=== PATIENT | female | born 1975 | race African-American/Black ===

== ENCOUNTER 2020-05-28 14:57 | Day surgery (SDC) | payer OTHER ==
[~2020-05-28 14:57] MED LIST: GLYCOPYRROLATE 1 MG/5 ML VIAL IVP ONE; LACTATED RINGERS 1,000 ML IV ONE; LIDOCAINE-MPF 2% 5 ML VIAL IM ONE; MIDAZOLAM 2 MG/2 ML VIAL IVP ONE; ONDANSETRON 4 MG/2 ML VIAL IVP ONE; PHENYLEPHRINE 10 MG/ML VIAL IV ONE; PROPOFOL 200 MG/20 ML VIAL IVP ONE; ROCURONIUM 50 MG/5 ML VIAL IVP ONE; ePHEDrine 50 MG/ML VIAL IVP ONE; fentaNYL 250 MCG/5 ML VIAL IVP ONE
--- NOTE | 2020-05-28 15:13 | ED Physician Documentation ---
PD HPI ABD PAIN - Stated complaint Stated Complaint: ABD PX/NAUSEA - History obtained from History obtained from: Patient - History of Present Illness Timing - onset: Last night (about 1 am, with onset pain left lower abd that has spread to include whole lower abd and also to mid abdomen, with distension. Now mostly tender right lower.) Timing - duration: Hours (14) Timing - details: Abrupt onset, Still present Quality: Cramping, Aching, Fullness/distended, Pain Location: Periumbilical, RLQ, LLQ Radiation: Lower back. No: Chest Worsened by: Eating Associated symptoms: Nausea, Constipation (no BM for 3-4 days, tried Miralax for past 2 days and today a suppository. However often goes few days between BMs without similar symptoms in the past.). No: Fever, Vomiting Similar symptoms before: Has not had sx before Recently seen: Not recently seen Review of Systems Constitutional: denies: Fever, Chills, Myalgias Nose: denies: Rhinorrhea / runny nose, Congestion Throat: denies: Sore throat Respiratory: denies: Cough GI: reports: Abdominal Pain, Abdominal Swelling, Nausea, Constipation. denies: Vomiting, Diarrhea, Bloody / black stool : denies: Dysuria, Frequency, Vaginal bleeding Skin: denies: Rash, Lesions Neurologic: reports: Generalized weakness. denies: Near syncope Endocrine: denies: Weight loss Immunocompromised: denies: Immunocompromised PD PAST MEDICAL HISTORY - Past Medical History Cardiovascular: Hypertension, Atrial fibrillation (with prior ablation) Respiratory: None Neuro: None Endocrine/Autoimmune: None GI: Chronic constipation : None - Past Surgical History General: Appendectomy Cardiovascular: Other (ablation for fib) - Allergies Allergies/Adverse Reactions: Allergies Allergy/AdvReac Type Severity Reaction Status Date / Time aspirin Allergy Anaphylaxis Verified 05/28/20 17:43 - Living Situation Living Situation: reports: With spouse/s.o. Living Arrangement: reports: At home - Social History Does the pt smoke?: No Does the pt drink ETOH?: No Does the pt have substance abuse?: No - Family History Family history: denies: CAD, Aortic aneursym PD ED PE NORMAL - Vitals Vital signs reviewed: Yes - General General: Alert and oriented X 3, Well developed/nourished, Other (appears uncomfortable) - HEENT HEENT: Moist mucous membranes, Pharynx benign - Neck Neck: Supple, no meningeal sign, No adenopathy - Cardiac Cardiac: RRR, No murmur - Respiratory Respiratory: Clear bilaterally - Abdomen Abdomen: Soft, No organomegaly, Other (Abdomen feels moderately distended with hyperactive bowel sounds. Focally marked tenderness in the right lower quadrant to periumbilical/mid lower abd area. There is local guarding. Moderate percussion tenderness.) - Female Female : Deferred - Rectal Rectal: Deferred - Back Back: No CVA TTP - Derm Derm: Normal color, Warm and dry - Extremities Extremities: No edema, No calf tenderness / cord - Neuro Neuro: Alert and oriented X 3, No motor deficit, Normal speech Results - Vitals Vitals: Vital Signs - 24 hr 05/28/20 05/28/20 05/28/20 15:10 17:17 19:00 Temperature 36.8 C Heart Rate 68 60 63 Respiratory 18 20 20 Rate Blood Pressure 139/83 H 131/89 H 144/80 H O2 Saturation 100 97 100 05/28/20 21:00 Temperature Heart Rate 70 Respiratory 17 Rate Blood Pressure 149/91 H O2 Saturation 100 Oxygen O2 Source Room air - Labs Labs: Laboratory Tests 05/28/20 05/28/20 05/28/20 15:40 18:42 18:42 WBC 8.4 RBC 4.47 Hgb 12.4 Hct 40.6 MCV 90.8 MCH 27.7 MCHC 30.5 L RDW 12.6 Plt Count 219 MPV 9.1 Neut # (Auto) 4.9 Lymph # (Auto) 2.8 [place] # (Auto) 0.6 Eos # (Auto) 0.1 Baso # (Auto) 0.0 Absolute Nucleated RBC 0.00 Nucleated RBC % 0.0 Sodium 137 Potassium 3.5 Chloride 103 Carbon Dioxide 25 Anion Gap 9.0 BUN 7 Creatinine 0.7 Estimated GFR (MDRD) 110 Glucose 93 Calcium 8.7 Total Bilirubin 0.6 AST 15 ALT 14 Alkaline Phosphatase 78 Total Protein 6.9 Albumin 3.9 Globulin 3.0 Albumin/Globulin Ratio 1.3 Lipase 23 Urine Color YELLOW Urine Clarity CLEAR Urine pH 7.0 Ur Specific [place] 1.010 Urine Protein NEGATIVE Urine Glucose (UA) NEGATIVE Urine Ketones TRACE Urine Occult Blood SMALL H Urine Nitrite NEGATIVE Urine Bilirubin NEGATIVE Urine Urobilinogen 0.2 (NORMAL) Ur Leukocyte Esterase TRACE H Urine RBC 6-10 H Urine WBC 6-10 H Ur Squamous Epith Cells MANY Squamous H Urine Bacteria Few Ur Microscopic Review INDICATED Urine Culture Comments NOT INDICATED Urine HCG, Qual NEGATIVE PD MEDICAL DECISION MAKING - ED course Complexity details: considered differential (consider bowel obstruction, diverticulitis, UTI, kidney stone. Has prior appy so not that. Consider ovarian as well, but exam more seeming GI so will start with CT. ), d/w patient ED course: care to Dr. Garcia at change of shift. Pending CT at this time. Reasonable improvement in pain with IV meds. Departure - Departure Disposition: ED Transfer to [facility] Clinical Impression: Ovarian torsion Condition: Stable
[2020-05-28] MEDS ORDERED: KETOROLAC 15 MG/ML VIAL IVP STA (15:49)
[2020-05-28] MEDS ORDERED: HYDROmorphone 1 MG/ML CARPUJECT IVP STA (15:49)
[2020-05-28] MEDS ORDERED: ONDANSETRON 4 MG/2 ML VIAL IVP STA (15:49)
[2020-05-28] MEDS ORDERED: SODIUM CHLORIDE 0.9% 1,000 ML IV STA ×3 (15:49→20:31)
[2020-05-28 16:03] LABS: BILIRUBIN,URINE NEGATIVE (NEGATIVE); CLARITY,URINE CLEAR (CLEAR); GLUCOSE, URINE (UA) NEGATIVE (NEGATIVE); KETONES,URINE (UA) TRACE mg/dL (NEGATIVE); LEUKOCYTE ESTERASE, URINE TRACE (NEGATIVE); NITRITE,URINE NEGATIVE (NEGATIVE); OCCULT BLOOD,URINE SMALL (NEGATIVE); PROTEIN,URINE NEGATIVE (NEGATIVE); UROBILINOGEN,URINE 0.2 (NORMAL) E.U./dL (NORMAL)
[2020-05-28 16:08] LABS: HCG UR QUAL NEGATIVE
[2020-05-28 16:11] LABS: BACTERIA,URINE Few /HPF (None Seen); SQUAMOUS EPITHELIAL CELL,UR MANY Squamous (<= Few)
[2020-05-28] MEDS ORDERED: IOVERSOL 320 100 ML VIAL IVP ONE (17:29)
[2020-05-28 18:47] LABS: BASOPHILS % (AUTO) 0.2 %; EOSINOPHILS # (AUTO) 0.1 10^3/uL (0.0-0.7); EOSINOPHILS % (AUTO) 0.6 %; HGB - HEMOGLOBIN 12.4 g/dL (12.0-16.0); LYMPHOCYTES # (AUTO) 2.8 10^3/uL (1.5-3.5); LYMPHOCYTES % (AUTO) 33.6 %; MEAN CORPUSCULAR HEMOGLOBIN 27.7 pg (27.0-31.0); MEAN CORPUSCULAR HGB CONC 30.5 g/dL (32.0-36.0); MEAN CORPUSCULAR VOLUME 90.8 fL (81.0-99.0); MEAN PLATELET VOLUME 9.1 fL (7.9-10.8); MONOCYTES # (AUTO) 0.6 10^3/uL (0.0-1.0); MONOCYTES % (AUTO) 7.1 %; NEUTROPHILS # (AUTO) 4.9 10^3/uL (1.5-6.6); NEUTROPHILS % (AUTO) 58.1 %; PLT - PLATELET COUNT 219 10^3/uL (130-450); RED BLOOD COUNT 4.47 10^6/uL (4.20-5.40); RED CELL DISTRIBUTION WIDTH 12.6 % (12.0-15.0); WHITE BLOOD COUNT 8.4 x10^3/uL (4.8-10.8)
[2020-05-28 18:59] LABS: ALBUMIN 3.9 g/dL (3.2-5.5); ALBUMIN/GLOBULIN RATIO 1.3 (1.0-2.2); BILIRUBIN,TOTAL 0.6 mg/dL (0.2-1.0); CALCIUM 8.7 mg/dL (8.5-10.3); CREATININE 0.7 mg/dL (0.4-1.0); TOTAL PROTEIN 6.9 g/dL (6.7-8.2)
--- NOTE | 2020-05-28 20:14 | CT Report ---
PROCEDURE: Abdomen/Pelvis W INDICATIONS: Abdominal pain, acute, nonlocalized CONTRAST: IV CONTRAST: Optiray 320 ml: 100 PO CONTRAST: *NO PO CONTRAST TECHNIQUE: After the administration of nonionic contrast, 5 mm thick sections acquired from the diaphragms to th e symphysis. 5 mm thick coronal and sagittal reformats were acquired. For radiation dose reduction, the following was used: automated exposure control, adjustment of mA and/or kV according to patient size. COMPARISON: None. FINDINGS: Image quality: Excellent. ABDOMEN: Lung bases: Lung bases are clear. Heart size is normal. Solid organs: Liver and spleen are normal in size and enhancement. Gallbladder appears normal Bili jamin system is non dilated. Pancreas enhances normally. No adrenal nodules. Kidneys demonstrate nor mal size and enhancement, without hydronephrosis. Peritoneum and bowel: Bowel loops demonstrate normal wall thickness and caliber. No free fluid or a ir. Generalized moderate colonic obstipation. Nodes and vessels: No retroperitoneal or mesenteric adenopathy by size criteria. Aorta and inferior vena cava are normal in size. Miscellaneous: No ventral hernias. PELVIS: Genitourinary: Bladder wall thickness is normal. The right ovary, conventional positioning, measure s up to 2.9 x 2.3 cm in maximal axial dimension. The left ovary, located at the anterior border of th e broad ligament, is asymmetrically larger measuring up to 4.5 x 3.2 cm. Free fluid is present to a m ild degree both at the right cul-de-sac. The anterior aspect of the broad ligament bilaterally. Miscellaneous: No inguinal hernias or adenopathy. Bones: No suspicious bony lesions. No vertebral body compression fractures. IMPRESSION: Generalized colonic obstipation, gallbladder appears normal, no urinary tract stone is f ound. A potentially significant abnormality is noted when comparing the size of the left kidney to the righ t. As discussed above the left kidney is anterior, adjacent to the anterior border of the broad ligam ent, and is larger than that on the right. This appearance could conceivably represent a manifestatio n of left ovarian torsion. Please correlate clinically as to whether follow-up by targeted pelvic ult rasound is warranted. Reviewed by: Brayan Sams MD on 05/28/2020 8:13 PM PDT Approved by: Brayan Sams MD on 05/28/2020 8:13 PM PDT Station ID: [id number]
[2020-05-28] MEDS ORDERED: MORPHINE 2 MG/ML CARPUJECT IVP STA (20:31)
--- NOTE | 2020-05-28 20:31 | ED Physician Documentation ---
ED Addendum - Addendum Addendum: 05/28/20 20:30 CT concerning for ovarian torsion. Patient appears to be in significant pain at this time. Her pain started suddenly at approximately 1 AM while she was sleeping. Pelvic ultrasound is ordered. She is tender in the left pelvic area. I consulted Dr. Yee, [employer] at 2030. She will come evaluate the patient. Patient has been n.p.o. all day. 05/28/20 22:21 Ultrasound performed, appears to only have peripheral arterial and venous flow. Varices are adjacent to the left ovary. Concerning for torsion. Recontacted Dr. Yee who will come evaluate the patient. Patient signed out to Dr. Brown. This document was made in part using voice recognition software. While efforts are made to proofread this document, sound alike and grammatical errors may occur. Departure - Departure Disposition: ED Transfer to [facility] Clinical Impression: Ovarian torsion Condition: Stable
--- NOTE | 2020-05-28 23:17 | HISTORY & PHYSICAL EXAMINATION ---
HPI - Admitted From Admitted from: ED - History Obtained From History obtained from: Patient, Family Exam limitations: No limitations - History of Present Illness HPI Comment/Other: CC: abdominal pain HPI: was sleeping on her left side, suddenly woke with pain at 0200, couldn't get comfortable, then pain became worse over time and became generalized. Thought it was constipation, tends to have BM q3d, last BM was 4d ago, has been taking mirilax. Got a suppository which didn't yield a BM. Due to the severe paian she came to ED for eval. Radiates to low back. Sharp pain. Movement makes it worse. 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 Able to take ibuprofen without problems. No hx of asthma. FH: no anesthesia problems SH: no t/e/d. Stay at home mom. 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: Dilation and currettage, Other (Ovarian cystectomy, myomectomy laparoscopic) Cardiovascular: positive: Other (ablation for WPW) Social & Family Hx - Social History Does the pt smoke?: No Smoking Status: Never smoker Does the pt drink ETOH?: No Does the pt have substance abuse?: No Meds/Allgy - Allergies Allergies/Adverse Reactions: Allergies Allergy/AdvReac Type Severity Reaction Status Date / Time aspirin Allergy Anaphylaxis Verified 05/28/20 17:43 Review of Systems - Constitutional Constitutional: denies: Fatigue, Fever Exam - Vital Signs Reviewed Vital Signs: Yes Vital Signs: Vital Signs x48h Pulse Resp BP Pulse Ox 05/28/20 23:00 71 18 154/93 H 100 05/28/20 21:00 70 17 149/91 H 100 05/28/20 19:00 63 20 144/80 H 100 05/28/20 17:17 60 20 131/89 H 97 - Physical Exam General Appearance: positive: No acute distress Eyes Bilateral: positive: EOMI Respiratory: positive: No respiratory distress, Breath sounds nml Cardiovascular: positive: Regular rate & rhythm, No gallop Abdomen: positive: Guarding, Rebound, Other (Mild distension, diffusely tender) Skin: positive: Color nml, Warm, Dry Neurologic/Psychiatric: positive: Mood/affect nml, Other (oriented) Results - Lab Results Fish Bones: 05/28/20 18:42 05/28/20 18:42 Other Lab Results: Lab Results x24hrs 05/28/20 05/28/20 05/28/20 Range/Units 18:42 18:42 15:40 WBC 8.4 (4.8-10.8) x10^3/uL RBC 4.47 (4.20-5.40) 10^6/uL Hgb 12.4 (12.0-16.0) g/dL Hct 40.6 (37.0-47.0) % MCV 90.8 (81.0-99.0) fL MCH 27.7 (27.0-31.0) pg MCHC 30.5 L (32.0-36.0) g/dL RDW 12.6 (12.0-15.0) % Plt Count 219 (130-450) 10^3/uL MPV 9.1 (7.9-10.8) fL Neut # (Auto) 4.9 (1.5-6.6) 10^3/uL Lymph # (Auto) 2.8 (1.5-3.5) 10^3/uL [place] # (Auto) 0.6 (0.0-1.0) 10^3/uL Eos # (Auto) 0.1 (0.0-0.7) 10^3/uL Baso # (Auto) 0.0 (0.0-0.1) 10^3/uL Absolute Nucleated RBC 0.00 x10^3/uL Nucleated RBC % 0.0 /100WBC Sodium 137 (135-145) mmol/L Potassium 3.5 (3.5-5.0) mmol/L Chloride 103 (101-111) mmol/L Carbon Dioxide 25 (21-32) mmol/L Anion Gap 9.0 (6-13) BUN 7 (6-20) mg/dL Creatinine 0.7 (0.4-1.0) mg/dL Estimated GFR (MDRD) 110 (>89) Glucose 93 (70-100) mg/dL Calcium 8.7 (8.5-10.3) mg/dL Total Bilirubin 0.6 (0.2-1.0) mg/dL AST 15 (10-42) IU/L ALT 14 (10-60) IU/L Alkaline Phosphatase 78 (42-121) IU/L Total Protein 6.9 (6.7-8.2) g/dL Albumin 3.9 (3.2-5.5) g/dL Globulin 3.0 (2.1-4.2) g/dL Albumin/Globulin Ratio 1.3 (1.0-2.2) Lipase 23 (22-51) U/L Urine Color YELLOW Urine Clarity CLEAR (CLEAR) Urine pH 7.0 (5.0-7.5) PH Ur Specific [place] 1.010 (1.002-1.030) Urine Protein NEGATIVE (NEGATIVE) mg/dL Urine Glucose (UA) NEGATIVE (NEGATIVE) mg/dL Urine Ketones TRACE (NEGATIVE) mg/dL Urine Occult Blood SMALL H (NEGATIVE) Urine Nitrite NEGATIVE (NEGATIVE) Urine Bilirubin NEGATIVE (NEGATIVE) Urine Urobilinogen 0.2 (NORMAL) (NORMAL) E.U./dL Ur Leukocyte Esterase TRACE H (NEGATIVE) Urine RBC 6-10 H (0-5) /HPF Urine WBC 6-10 H (0-5) /HPF Ur Squamous Epith Cells MANY Squamous H (<= Few) Urine Bacteria Few (None Seen) /HPF Ur Microscopic Review INDICATED Urine Culture Comments NOT INDICATED Urine HCG, Qual NEGATIVE - Diagnostic Imaging Results Diagnostic Imaging Results: positive: See rad report, Read contemporaneously Diagnostic Imaging Results Comments: US with a [id number] complex left ovarian cyst, edematous appearance, adjacent varicocity, and no central blood flow. Mild free fluid present. Impression/Plan - Problem List Problem List: 44yo with pain, exam, and ultrasound appearance c/w left ovarian torsion. WBC normal, CT normal. [id number] left ov cyst. Discussed etiology and that the only treatment options are no treatment vs. surgical untwisting and cystectomy. Patient prefers treatment. Discussed laparoscopy, how it is performed, and recovery. Pt has had 2 LSC in the past and is familiar with this surgery. Risks include bleeding, infection, trauma to local organs, anesthesia complications, and failure to cure pain. Offered incidental salpingectomy to reduce cancer risk--patient would like this done. All questions answered and consent signed. OR team on their way. Plan for extended recovery to see if this pain resolves.
[2020-05-28] MEDS ORDERED: HYDROcod/ACET 5/325 Prepack 4 PO STA (23:27)
[2020-05-28] MEDS ORDERED: METOPROLOL SUCCINATE 25 MG TABLET PO SCH (23:39)
[2020-05-28] MEDS: METOPROLOL SUCCINATE 25 MG TABLET PO SCH (23:42)
[2020-05-29] MEDS ORDERED: IOVERSOL 320 100 ML VIAL IVP ONE
--- NOTE | 2020-05-29 00:38 | ANESTHESIA ---
Pre-Anesthesia VS, & Labs - Diagnosis Ovarian cyst, possible torsion - Procedure ovarian cystectomy, possible L (vs. R) salpingo-oophorectomy Vital Signs: Temp Pulse Resp BP Pulse Ox 36.8 C 71 18 154/93 H 100 05/28/20 15:10 05/28/20 23:00 05/28/20 23:00 05/28/20 23:00 05/28/20 23:00 Height 5 ft 3 in Weight (kg) 68.039 kg Body Mass Index 26.5 - Is Patient ?: No - Lab Results Current Lab Results: Laboratory Tests 05/28/20 18:42: Sodium 137, Potassium 3.5, Chloride 103, Carbon Dioxide 25, Anion Gap 9.0, BUN 7, Creatinine 0.7, Estimated GFR (MDRD) 110, Glucose 93, Calcium 8.7, Total Bilirubin 0.6, AST 15, ALT 14, Alkaline Phosphatase 78, Total Protein 6.9, Albumin 3.9, Globulin 3.0, Albumin/Globulin Ratio 1.3, Lipase 23 05/28/20 18:42: WBC 8.4, RBC 4.47, Hgb 12.4, Hct 40.6, MCV 90.8, MCH 27.7, MCHC 30.5 L, RDW 12.6, Plt Count 219, MPV 9.1, Neut # (Auto) 4.9, Lymph # (Auto) 2.8, [place] # (Auto) 0.6, Eos # (Auto) 0.1, Baso # (Auto) 0.0, Absolute Nucleated RBC 0.00, Nucleated RBC % 0.0 Fish Bones: 05/28/20 18:42 05/28/20 18:42 Home Medications and Allergies Active Medications Sodium Chloride (Normal Saline 0.9%) 1,000 mls @ 150 mls/hr IV .[id number] STA Stop: 05/29/20 03:10 Last Admin: 05/28/20 20:40 Dose: 150 mls/hr Documented by: Metoprolol Succinate (Toprol Xl) 25 mg PO DAILY CHARLES Last Admin: 05/28/20 23:42 Dose: Not Given Documented by: Allergies/Adverse Reactions: Allergies Allergy/AdvReac Type Severity Reaction Status Date / Time aspirin Allergy Anaphylaxis Verified 05/28/20 17:43 Anes History & Medical History - Medical History Cardiovascular: reports: Hypertension, Other (WPW with normal rhythm since ablation in 1997) Pulmonary: reports: None Gastrointestinal: reports: Chronic constipation Urinary: reports: None Neuro: reports: None Endocrine/Autoimmune: reports: None Smoking Status: Never smoker - Surgical History General: Appendectomy Cardiothoracic: Other (ablation for WPW) Gynecologic: Dilation and currettage, Other (Ovarian cystectomy, myomectomy laparoscopic) Orthopedic: Other (Right thumb x3) Plan Anesthesia Type: General Consent for Procedure(s) Verified and Reviewed: Yes Code Status: Attempt Resuscitation ASA classification: 2-Mild systemic disease (2E) Is this case an emergency?: Yes
[2020-05-29] MEDS ORDERED: BUPIVACAINE 0.5% PF 30 ML VIAL ONE (00:47)
[2020-05-29] MEDS ORDERED: LIDOCAINE 1%-EPI 1:100000 20 ML MDV ONE (00:47)
[2020-05-29] MEDS ORDERED: BUPIVACAINE 0.5% PF 30 ML VIAL INFIL ONE (00:50)
[2020-05-29] MEDS ORDERED: LIDOCAINE 1%-EPI 1:100000 20 ML MDV SUBQ ONE (00:50)
[2020-05-29] MEDS ORDERED: MORPHINE 2 MG/ML CARPUJECT IVP PRN (00:57)
[2020-05-29] MEDS ORDERED: METOCLOPRAMIDE 10 MG/2 ML VIAL IVP PRN ×2 (00:57→05:07)
[2020-05-29] MEDS ORDERED: NALOXONE 0.4 MG/ML VIAL IVP PRN (00:57)
[2020-05-29] MEDS ORDERED: HYDROmorphone 0.5 MG/0.5 ML SYRINGE IVP PRN (00:57)
[2020-05-29] MEDS ORDERED: ePHEDrine 50 MG/ML VIAL IVP PRN (00:57)
[2020-05-29] MEDS ORDERED: ONDANSETRON 4 MG/2 ML VIAL IVP PRN (00:57)
[2020-05-29] MEDS ORDERED: fentaNYL 100 MCG/2 ML VIAL IVP PRN (00:57)
[2020-05-29] MEDS ORDERED: ATROPINE ABBOJECT 1 MG/10 ML SYRINGE IVP PRN (00:57)
[2020-05-29] MEDS ORDERED: LACTATED RINGERS 1,000 ML IV SCH (01:00)
[2020-05-29] MEDS ORDERED: diphenhydrAMINE 25 MG CAPSULE PO PRN (02:11)
[2020-05-29] MEDS ORDERED: oxyCODONE 5 MG TABLET PO PRN (02:11)
[2020-05-29] MEDS ORDERED: SODIUM CHLORIDE FLUSH 0.9% 10 ML SYRINGE IVP PRN (02:11)
[2020-05-29] MEDS ORDERED: SIMETHICONE CHEW 80 MG TABLET PO PRN (02:11)
--- NOTE | 2020-05-29 02:16 | OPERATIVE REPORT ---
Operative Report - General Procedure Date: 05/29/20 Pre-Op Diagnosis: Abd pain, left ov torsion, complex left ov cyst Procedure Performed: LSC bilateral salpingectomy and right ovarian cyst drainage Post Op Diagnosis: Hemorrhagic left ovarian cyst - Procedure Note Primary Surgeon: Joselito Anesthesia Technique: General LMA Pathology: bilateral tubes IV Fluids (mL): 550 Estimated Blood Loss (mL): 10 Urine Output (mL): 300 Findings: L ov cyst hemorrhagic with clot, mild volume of blood in pelvis, right paratubal cyst, left tube appeared edematous, no necrosis in pelvis, no adhesions Complications: none
[2020-05-29] MEDS ORDERED: ONDANSETRON 4 MG/2 ML VIAL ONE (02:37)
[2020-05-29] MEDS: HYDROmorphone 0.5 MG/0.5 ML SYRINGE ONE ×2 (02:40→02:46)
[2020-05-29] MEDS: ONDANSETRON ODT 4 MG TABLET TL PRN ×2 (04:59→09:00)
--- NOTE | 2020-05-29 05:09 | PROVIDER PROGRESS NOTE ---
Subjective - Subjective Subjective: Patient reports improved pain compared to when she was in the ER. Nauseated but good pain control. Objective - Vital Signs/Intake & Output Vital Signs: Vital Signs x48h Temp Pulse Resp BP Pulse Ox 05/29/20 05:00 79 16 122/75 99 05/29/20 04:30 79 16 120/77 96 05/29/20 04:00 73 15 123/78 98 05/29/20 03:45 78 16 127/77 97 05/29/20 03:30 98.1 F 72 16 127/68 97 05/29/20 03:15 98.1 F 74 16 122/82 H 95 05/29/20 02:55 97.5 F L 72 16 122/94 H 100 05/29/20 02:45 97.3 F L 74 16 146/80 H 100 05/29/20 02:40 97.5 F L 77 16 135/84 H 100 05/29/20 02:35 97.3 F L 80 20 139/94 H 100 05/29/20 02:30 97.3 F L 86 20 140/81 H 100 05/29/20 02:25 97.3 F L 76 20 134/80 H 100 05/29/20 02:20 97.7 F 72 16 129/78 100 05/29/20 02:15 97.5 F L 74 16 130/82 H 100 05/29/20 02:10 97.3 F L 80 16 130/82 H 100 05/29/20 02:07 98.1 F 82 12 132/82 H 100 05/28/20 23:51 67 18 134/90 H 98 05/28/20 23:00 71 18 154/93 H 100 Intake & Output: Intake & Output 05/26/20 05/27/20 05/28/20 05/29/20 23:59 23:59 23:59 23:59 Intake Total 2000 Balance 1999 - Lab Results Fish Bones: 05/28/20 18:42 05/28/20 18:42 Other Labs: Lab Results x24hrs 05/28/20 05/28/20 05/28/20 Range/Units 18:42 18:42 15:40 WBC 8.4 (4.8-10.8) x10^3/uL RBC 4.47 (4.20-5.40) 10^6/uL Hgb 12.4 (12.0-16.0) g/dL Hct 40.6 (37.0-47.0) % MCV 90.8 (81.0-99.0) fL MCH 27.7 (27.0-31.0) pg MCHC 30.5 L (32.0-36.0) g/dL RDW 12.6 (12.0-15.0) % Plt Count 219 (130-450) 10^3/uL MPV 9.1 (7.9-10.8) fL Neut # (Auto) 4.9 (1.5-6.6) 10^3/uL Lymph # (Auto) 2.8 (1.5-3.5) 10^3/uL [place] # (Auto) 0.6 (0.0-1.0) 10^3/uL Eos # (Auto) 0.1 (0.0-0.7) 10^3/uL Baso # (Auto) 0.0 (0.0-0.1) 10^3/uL Absolute Nucleated RBC 0.00 x10^3/uL Nucleated RBC % 0.0 /100WBC Sodium 137 (135-145) mmol/L Potassium 3.5 (3.5-5.0) mmol/L Chloride 103 (101-111) mmol/L Carbon Dioxide 25 (21-32) mmol/L Anion Gap 9.0 (6-13) BUN 7 (6-20) mg/dL Creatinine 0.7 (0.4-1.0) mg/dL Estimated GFR (MDRD) 110 (>89) Glucose 93 (70-100) mg/dL Calcium 8.7 (8.5-10.3) mg/dL Total Bilirubin 0.6 (0.2-1.0) mg/dL AST 15 (10-42) IU/L ALT 14 (10-60) IU/L Alkaline Phosphatase 78 (42-121) IU/L Total Protein 6.9 (6.7-8.2) g/dL Albumin 3.9 (3.2-5.5) g/dL Globulin 3.0 (2.1-4.2) g/dL Albumin/Globulin Ratio 1.3 (1.0-2.2) Lipase 23 (22-51) U/L Urine Color YELLOW Urine Clarity CLEAR (CLEAR) Urine pH 7.0 (5.0-7.5) PH Ur Specific [place] 1.010 (1.002-1.030) Urine Protein NEGATIVE (NEGATIVE) mg/dL Urine Glucose (UA) NEGATIVE (NEGATIVE) mg/dL Urine Ketones TRACE (NEGATIVE) mg/dL Urine Occult Blood SMALL H (NEGATIVE) Urine Nitrite NEGATIVE (NEGATIVE) Urine Bilirubin NEGATIVE (NEGATIVE) Urine Urobilinogen 0.2 (NORMAL) (NORMAL) E.U./dL Ur Leukocyte Esterase TRACE H (NEGATIVE) Urine RBC 6-10 H (0-5) /HPF Urine WBC 6-10 H (0-5) /HPF Ur Squamous Epith Cells MANY Squamous H (<= Few) Urine Bacteria Few (None Seen) /HPF Ur Microscopic Review INDICATED Urine Culture Comments NOT INDICATED Urine HCG, Qual NEGATIVE
[2020-05-29] MEDS ORDERED: SODIUM CHLORIDE FLUSH 0.9% 10 ML SYRINGE IVP SCH (09:00)
[2020-05-29] MEDS ORDERED: METOPROLOL SUCCINATE 25 MG TABLET PO SCH (09:00)
[2020-05-29] MEDS ORDERED: DOCUSATE SODIUM 100 MG CAPSULE PO SCH (09:00)
[2020-05-29] MEDS: METOPROLOL SUCCINATE 25 MG TABLET PO SCH (09:57)
--- NOTE | 2020-05-29 10:00 | Ultrasound Report ---
PROCEDURE: Pelvic w/Transvag+Doppler Comp INDICATIONS: pelvic pain, L TECHNIQUE: Real-time scanning was performed of the pelvic organs, with image documentation. Additional endovagi nal scanning was necessary due to incomplete visualization of the adnexal and endometrial structures by transabdominal scanning. COMPARISON: Correlation is made with the accompanying abdomen pelvis CT 05/28/20 FINDINGS: Transabdominal scanning: Limited scanning through the kidneys shows no hydronephrosis. Free fluid is seen within the pelvic cul-de-sac and there is free fluid with internal echoes seen adjacent to the right ovary. Free fluid is seen adjacent to the left ovary. Endovaginal scanning: Uterus: Uterus is normal in size at 9.5 x 4.7 x 5.8 cm. There is a 1.4 cm intramural fibroid seen on the left anteriorly. The endometrium measures 6 mm in combined thickness. Ovaries: The ovaries are somewhat prominent in size. The right ovary measures 6.1 x 2.1 x 4.1 cm and demonstrates a 3 cm simple cyst within it. The left ovary measures 5.4 x 3.2 x 4.3 cm and demonstrat es a 3.2 x 2.3 x 3 cm irregular hypoechoic lesion. Flow is seen within the left ovary, yet only at it s periphery. No flow seen within the hypoechoic lesion of the left ovary. Pelvic varices are seen adjacent to the left ovary. IMPRESSION: Likely 3.2 cm hemorrhagic cyst seen of the left ovary. Please consider a short-term follow-up ultras ound in 6 weeks to ensure resolution/improvement. Simple appearing right renal cyst measuring up to 3 cm, which is considered to be at the upper limits of normal for a functional, physiologic cyst. Free pelvic fluid is seen, including mild to moderate complex free fluid. This may be related to hemo rrhage from cyst rupture. Pelvic varices are seen on the left. 1.4 cm uterine fibroid seen. Note: Concordant preliminary findings given by the gas plant repairer upon the completion of the examination to Dr. Garcia at 9:45 PM on 05/28/2020 Note: No significant discrepancy from the preliminary report. Reviewed by: Nick Hayes MD on 05/29/2020 8:59 AM JARRED Approved by: Nick Hayes MD on 05/29/2020 8:59 AM JARRED Station ID: [id number]
[2020-05-29 14:08] VITALS: BP 107/56
--- NOTE | 2020-05-29 14:23 | OPERATIVE REPORT ---
DATE OF SERVICE: 05/29/2020 Physician: Amalia Yee MD PREOPERATIVE DIAGNOSES 1. Abdominal pain. 2. Left ovarian torsion. 3. Complex left ovarian cyst. POSTOPERATIVE DIAGNOSIS: Hemorrhagic left ovarian cyst. PROCEDURE PERFORMED: Laparoscopic bilateral salpingectomy and drainage of a left ovarian cyst. SURGEON: Amalia Yee MD FEED MIXER HELPER: None. ANESTHESIA: General. ESTIMATED BLOOD LOSS: 10 mL INTRAVENOUS FLUIDS: 550 mL URINE OUTPUT: 300 mL COUNTS: Correct x2. COMPLICATIONS: None apparent. DISPOSITION: Stable to the recovery room. PROPHYLAXIS: SCDs to bilateral lower extremities. SPECIMENS: Bilateral fallopian tubes to Pathology. FINDINGS: Left ovarian cyst that contained clot. There was a mild amount of blood in the pelvis. T here was a right paratubal cyst. The left fallopian tube appeared edematous. There was no necrotic tissue in the pelvis and no adhesive disease. The uterus and right ovary appeared normal. COUNSELING: Patient had an abrupt onset of left lower quadrant pain that woke her from sleep. The p ain intensified throughout the day. An ultrasound revealed a complex left ovarian cyst with peripher al varicosity and absent flow within the ovary. A CT was normal and her white count was normal. Vane ient is status post appendectomy in the past. She was counseled that her treatment options were to d o nothing or to do laparoscopic evaluation of the probable torsion with cystectomy. Patient was offe red bilateral salpingectomy for cancer risk reduction, which she did desire. DESCRIPTION OF PROCEDURE: Patient was brought to the operating room, where she was induced with gene ral anesthesia. She was placed in low lithotomy in [facility]. Bimanual exam revealed an axi al uterus. She was prepped and draped in the usual sterile fashion. A Brownlee catheter was placed. A speculum was placed in the vagina, and a single-tooth tenaculum was applied to the anterior lip of t he cervix. The cervix required dilation with a uterine sound, a HUMI uterine retractor was inserted into the uterine cavity, and the balloon was inflated. The tenaculum was removed. Prior to placemen t of the HUMI, patient received a paracervical block, 10 mL. All local anesthesia administered was a 50/50 combination of 0.5% Marcaine plus 1% lidocaine with epinephrine. The surgeon's over gloves we re changed. All incisions were numbed prior to making them with an [address] All trocars were place d under direct visualization. The first was a 5 mm trocar in the inferior aspect of the umbilicus. All trocars were placed in the patient's preexisting laparoscopy scars. The Veress needle was insert ed into the peritoneal cavity while tenting the abdominal tissue upward. Opening pressure was low, a nd the peritoneum was insufflated to a level of 15. The 5 mm trocar was placed. The contents of the pelvis were examined. Two more 5 mm trocars were placed on the left side, one lateral to the umbili cus and the other one in the left lower quadrant. The adnexa was not torsed at the time of laparoscopy, but the fallopian tube appeared edematous consi stent with possible prior torsion. The salpingectomy was performed by amputating the fallopian tube from the mesosalpinx with a LigaSure. The fallopian tube was amputated about a centimeter from the u terine cornua. The tubes were brought up through the trocars. The right fallopian tube did have a p aratubal cyst that was at least 1 cm in diameter. This was punctured prior to removing it, so that i t would fit through the trocar. The left ovary contained the cyst. The area over the cyst was incis ed with a cautery hook. Blood clot was extruded. The suction open pit quarry supervisor was used to evacuate blood c lot. I attempted to dissect the cyst wall off of the ovarian stroma. However, the cyst wall was den sely adherent, and this was not possible. It is most likely that this cyst is a result of hemorrhagi c ovulation and not neoplasm, and so obtaining the cyst wall is less important in this setting. Hemostasis was excellent throughout. All the blood and clot was irrigated from her pelvis. The troc ars were removed. The patient was given some deep breaths prior to the removal. S-retractors were used to tent the umbilical incision upward. The fascia was grasped and closed in a single interrupte d suture. The skin was closed with subcuticular sutures of 4-0 Monocryl, Dermabond was then applied. The Brownlee and the HUMI were removed. The patient was returned to the supine position prior to amarilis jamil. She will go to the recovery room. If her pain is unchanged, then she will undergo further evalu ation. If her pain is improved, then she will go home when she is ready. She will be placed in exte nded recovery. TD: 05/29/2020 02:28
--- NOTE | 2020-05-29 14:42 | ANESTHESIA POST OP EVALUATION ---
Anesthesia Post Eval - Post Anesthesia Eval Vitals: Last Vital Signs Temp 36.8 C 05/29/20 14:07 Pulse 65 05/29/20 14:07 Resp 16 05/29/20 14:07 BP 107/56 L 05/29/20 14:07 Pulse Ox 98 05/29/20 14:07 CV Function Including HR & BP: positive: Stable Pain Control: positive: Satisfactory Nausea & Vomiting: positive: Negative Mental Status: positive: Patient Participates Respiratory Status: Airway Patent Hydration Status: Satisfactory Anesthesia Complications: positive: None
[2020-05-30] MEDS ORDERED: IBUPROFEN 600 MG TABLET PO SCH (03:00)
== END 2020-05-29 14:25 | disposition home or self-care (01) ==
LOC: ED 14:57 → SDS 23:00 → MS2 05-29 02:26 → SDS 05-29 14:25
PROVIDERS: ATTEND Obstetrics & Gynecology
PROC: 0UT74ZZ Resection of Bilateral Fallopian Tubes, Percutaneous Endoscopic Approach (ICD-10-PCS; principal; 2020-05-29)
PROC: 0U914ZZ Drainage of Left Ovary, Percutaneous Endoscopic Approach (ICD-10-PCS; 2020-05-29)
DX: N83.292 Other ovarian cyst, left side (principal); N83.8 Other noninflammatory disorders of ovary, fallopian tube and broad ligament; D25.1 Intramural leiomyoma of uterus; I10 Essential (primary) hypertension
CPT/HCPCS: 36415; 58661; 58679; 74177; 76830; 76856; 80053; 81001; 81025; 83690; 85025; 93975; 96361; 96374; 99284; 99285; A9270; J1170; J2765; J3010; J7120; Q0162; Q9967; 81003; 87086

== ENCOUNTER 2020-06-13 07:00 | Outpatient (CLI) | payer OTHER ==
[2020-06-14 20:29] LABS: CANDIDA GROUP DNA NEGATIVE (NEGATIVE); CANDIDA KRUSEI DNA NEGATIVE (NEGATIVE); TRICHOMONAS VAGINALIS DNA NEGATIVE (NEGATIVE)
== END 2020-06-13 23:59 | disposition home or self-care (01) ==
LOC: LAB.R 07:00
PROVIDERS: ATTEND Obstetrics & Gynecology
DX: N89.8 Other specified noninflammatory disorders of vagina (principal); Z11.3 Encounter for screening for infections with a predominantly sexual mode of transmission
CPT/HCPCS: 81599; 87491; 87591; 87661; 87801

== ENCOUNTER 2020-07-01 10:52 | Outpatient (CLI) | payer OTHER ==
--- NOTE | 2020-07-14 15:20 | Mammography Report ---
BILATERAL DIGITAL SCREENING MAMMOGRAM 3D/2D: 07/01/2020 CLINICAL: Routine screening. No prior exams were available for comparison. The tissue of both breasts is heterogeneously dense. T his may lower the sensitivity of mammography. No significant masses, calcifications, or other findings are seen in either breast. IMPRESSION: NEGATIVE There is no mammographic evidence of malignancy. A 1 year screening mammogram is recommended. This exam was interpreted at Station ID: [id number]. NOTE: For mammograms, a report in lay terms will be sent to the patient. Approximately 15% of breast malignancies will not be visualized mammographically. In the management of a palpable breast mass, a negative mammogram must not discourage biopsy of a clinically suspicious lesion. Electronically Signed By: Cindi alberts/yaakov:07/13/2020 16:58:29 ACR BI-RADS Category 1: Negative 3341F PARENCHYMAL PATTERN: (D) - The breast(s) demonstrate(s) heterogeneously dense fibroglandular brandi de la cruz. BI-RADS CATEGORY: (1) - 1 RECOMMENDATION: (ANNUAL) - Recommend routine annual screening mammography. [id number] 1 year screening LATERALITY: (B)
== END 2020-07-01 10:53 | disposition home or self-care (01) ==
LOC: DI.N 10:52
PROVIDERS: ATTEND Obstetrics & Gynecology
DX: Z12.31 Encounter for screening mammogram for malignant neoplasm of breast (principal)
CPT/HCPCS: 77063; 77067

== ENCOUNTER 2020-07-08 09:51 | Outpatient (CLI) | payer OTHER ==
--- NOTE | 2020-07-08 13:24 | Ultrasound Report ---
PROCEDURE: Pelvic w/Transvaginal INDICATIONS: LT SIDE OVARIAN CYST, SENSORY DENERVATION OF RECTU TECHNIQUE: Real-time scanning was performed of the pelvic organs, with image documentation. Additional endovagi nal scanning was necessary due to incomplete visualization of the adnexal and endometrial structures by transabdominal scanning. COMPARISON: None. FINDINGS: Transabdominal scanning: Limited scanning through the kidneys shows no hydronephrosis. No pathologi c free abdominal or pelvic fluid. Endovaginal scanning: Uterus: Uterus is normal in size at 9.7 x 5.2 x 5.4 cm. The endometrium measures 8 mm in combined t hickness. Ovaries: Right ovary measures 5.6 x 2.8 x 4.6 cm. There is a right ovarian cyst measuring 5.3 x 3.4 x 4.1 cm. Previously this measured 3.0 x 1.8 x 2.2 cm Left ovary measures 3.0 x 1.8 x 2.7 cm. Physiologic follicular change noted. Previously described lef t ovarian cyst has resolved. IMPRESSION: Interval resolution of left ovarian cyst. Nonspecific large right ovarian cyst has increased in size slightly. Recommend continued ultrasound f ollow-up in 6 weeks to document resolution or improvement. Reviewed by: Alvin Samano MD on 07/08/2020 1:22 PM PDT Approved by: Alvin Samano MD on 07/08/2020 1:22 PM PDT Station ID: [id number]
== END 2020-07-08 09:52 | disposition home or self-care (01) ==
LOC: DI 09:51
PROVIDERS: ATTEND Obstetrics & Gynecology
DX: N83.291 Other ovarian cyst, right side (principal); R44.8 Other symptoms and signs involving general sensations and perceptions
CPT/HCPCS: 76830; 76856

== ENCOUNTER 2020-09-09 08:22 | Outpatient (CLI) | payer OTHER ==
--- NOTE | 2020-09-09 14:39 | Ultrasound Report ---
PROCEDURE: Pelvic w/Transvaginal INDICATIONS: SECONDARY AMENORRHEA TECHNIQUE: Real-time scanning was performed of the pelvic organs, with image documentation. Additional endovagi nal scanning was necessary due to incomplete visualization of the adnexal and endometrial structures by transabdominal scanning. COMPARISON: None. FINDINGS: Transabdominal scanning: Limited scanning through the kidneys shows no hydronephrosis. No pathologi c free abdominal or pelvic fluid. Endovaginal scanning: Uterus: Uterus is at the upper limits of normal in size at 9.4 x 4.5 x 5.7 cm. The endometrium kia ures 6 mm in combined thickness. There is a left intervertebral focus of heterogeneous echogenicity measuring 19 x 11 x 14 mm compared to 12 x 11 x 13 mm. A similar focus in the posterior aspect is jaylen ntified measuring 14 x 11 x 11 mm compared to routine by 11 x 14 mm. Ovaries: Right ovary measures 4.2 x 2.5 x 2.8 cm. There is a focus of low echogenicity measuring 26 x 17 x 20 mm as well as a second focus measuring 34 x 11 x 19 mm. Left ovary measures 2.2 x 1.6 x 1.4 cm. IMPRESSION: 1. Foci of heterogeneous echogenicity within the uterus suggestive of fibroids. It is noted that the more anterior focus does demonstrate a mild interval increase in size compared to prior exam. 2. Foci of decreased echogenicity within the ovary suggestive of cysts, with the smaller focus appear ing suggestive of an involuting hemorrhagic cyst. Reviewed by: Shameka Alvarado MD on 09/09/2020 2:38 PM PST Approved by: Shameka Alvarado MD on 09/09/2020 2:38 PM PST Station ID: [id number]
== END 2020-09-09 08:23 | disposition home or self-care (01) ==
LOC: DI 08:22
PROVIDERS: ATTEND Obstetrics & Gynecology
DX: N91.1 Secondary amenorrhea (principal)

== ENCOUNTER 2020-09-09 08:23 | Outpatient (CLI) | payer OTHER ==
--- NOTE | 2020-09-09 16:51 | XRAY Report ---
PROCEDURE: Lumbar Spine 2 View INDICATIONS: BACK PAIN TECHNIQUE: 2 views of the lumbar spine were acquired. COMPARISON: None. FINDINGS: Bones: 5 met-hoc-[id number] vertebrae are present. There is normal bony alignment. No vertebral body compression fractures. No suspicious bony lesions. Soft tissues: Overlying bowel gas pattern is normal. No suspicious soft tissue calcifications. IMPRESSION: No fracture. No osseous lesion. If there is continued clinical concern for pathology, then MRI should be considered for further evaluation. Reviewed by: Armida Killian MD, PhD on 09/09/2020 4:50 PM PST Approved by: Armida Killian MD, PhD on 09/09/2020 4:50 PM PST Station ID: [id number]
== END 2020-09-09 08:24 | disposition home or self-care (01) ==
LOC: DI 08:23
PROVIDERS: ATTEND Family Medicine
DX: M54.5 Low back pain (principal)

== ENCOUNTER 2020-09-09 08:24 | Outpatient (CLI) | payer OTHER ==
--- NOTE | 2020-09-09 08:53 | CT Report ---
PROCEDURE: HEAD WO INDICATIONS: MASTOIDITIS, SINUS PAIN TECHNIQUE: Noncontrast 4.5 mm thick angled axial sections acquired from the foramen magnum to the vertex. For r adiation dose reduction, the following was used: automated exposure control, adjustment of mA and/or kV according to patient size. COMPARISON: None. FINDINGS: Image quality: Excellent. CSF spaces: Basal cisterns are patent. No extra-axial fluid collections. Ventricles are normal in size and shape. Brain: No midline shift. No intracranial masses or hemorrhage. Sepulveda-white matter interface is norm al. Skull and face: Calvarium and visualized facial bones are intact, without suspicious lesions. Sinuses: Visualized sinuses and mastoids are clear. IMPRESSION: The brain parenchyma appears normal. Currently no CT evidence of mastoiditis/sinusitis i s seen. Please note that the normal protocol of head CT scanning does not include clear visualization of the entirety of the paranasal sinuses but the upper aspect of the maxillary sinuses included on t his examination. Entirely normal as do the paranasal sinuses more superiorly. Reviewed by: Brayan Sams MD on 09/09/2020 8:52 AM PST Approved by: Brayan Sams MD on 09/09/2020 8:52 AM PST Station ID: [id number]
--- NOTE | 2020-09-10 06:53 | CT Report ---
PROCEDURE: Sinuses INDICATIONS: Mastoiditis, sinus pain TECHNIQUE: Noncontrast 3.0 mm axial images acquired from the frontal sinuses to the mid-sella, with coronal and sagittal reformats. For radiation dose reduction, the following was used: automated exposure control , adjustment of mA and/or kV according to patient size. COMPARISON: None FINDINGS: Image quality: Excellent. Maxillary Sinuses: No bony remodeling or destruction. Sinuses are clear. Ethmoid Air Cells: No bony remodeling or destruction. Sinuses are clear. Sphenoid Sinuses: No bony remodeling or destruction. Sinuses are clear. Frontal Sinuses: No bony remodeling or destruction. Sinuses are clear. Ostiomeatal Complexes: Ostiomeatal complexes are patent. No Keren cells. Miscellaneous: Visualized intra-orbital contents are normal. No teresita bullosa. No nasal septal de viation. Mastoid air cells are clear. IMPRESSION: No findings of acute or chronic sinusitis. Reviewed by: Ruben Nick MD on 09/09/2020 9:45 AM [facility] Approved by: Ruben Nick MD on 09/09/2020 9:45 AM [facility] Station ID: [id number]
== END 2020-09-09 08:25 | disposition home or self-care (01) ==
LOC: DI 08:24
PROVIDERS: ATTEND Obstetrics & Gynecology
DX: H70.90 Unspecified mastoiditis, unspecified ear (principal); R51.9 Headache, unspecified; N91.1 Secondary amenorrhea; M54.5 Low back pain
CPT/HCPCS: 36415; 70450; 70486; 82670; 83001; 83036; 84146; 84443

== ENCOUNTER 2020-09-09 09:44 | Outpatient (CLI) | payer OTHER ==
[2020-09-09 10:53] LABS: PROLACTIN 20.14 ng/mL
[2020-09-09 11:17] LABS: FOLLICLE STIMULATING HORMONE 12.62 mIU/mL
[2020-09-09 13:31] LABS: HEMOGLOBIN A1c% 5.8 % (4.27-6.07)
== END 2020-09-09 09:45 | disposition home or self-care (01) ==
LOC: LAB 09:44
PROVIDERS: ATTEND Obstetrics & Gynecology
DX: N91.1 Secondary amenorrhea (principal)
CPT/HCPCS: 36415; 82670; 83001; 83036; 84146; 84443

== ENCOUNTER 2020-10-12 15:31 | Outpatient (CLI) | payer OTHER ==
[2020-10-12 16:26] VITALS: BP 132/82
--- NOTE | 2020-10-12 16:26 | SLEEP CARE CONSULTATION ---
Information from patient questionnaire entered by Justin Shaw. I have reviewed and concur with the information entered by Justin Shaw. This document represents the service I personally performed and the decisions made by me, Maria Teresa Anthony ARNP. History of Present Illness Service Date and Time: 10/12/2020 1531 Reason for Visit: New patient Chief Complaint: reports: Unrefreshed sleep, Snoring, Excessive daytime sleepiness, Fatigue, Frequent awakenings at night. denies: Observed pauses in breathing Date of Onset: About a year Usual bedtime: 1-2 AM Time it takes to fall asleep: About an hour Snores at night: Yes (sometimes) Observed to quit breathing while asleep: No Sleeps alone due to snoring: No Number of times waking at night: 1-2 Reasons for waking at night: reports: Snoring, Other (I just wake up). denies: Choking, Gasping for air Toss, Turn, or Twitch while sleeping: Yes Recalls having dreams: Yes Usually gets out of bed at: 8:30 AM Feels refreshed in the morning: No Morning headache: No Sleepy or fatigued during the day: Yes Ever fallen asleep while driving: No Takes day naps: No Dreams during day naps: No Prior sleep studies: No Additional HPI information: I had the pleasure of seeing ALEXANDRA JUAREZ today regarding the possibility of her having a sleep disorder. Her current complaints are insomnia, frequent night awakenings, unrefreshed sleep, daytime sleepiness and fatigue. She states she has been having trouble sleeping that seems to be getting worse. She does have some symptoms of RLS and has taken medication for it. She thinks this was keeping her up in the beginning of her sleep difficulties. They didn't happen all the time but was making it hard to get good night's sleep. She moved her about a year ago and her symptoms have worsened. She started taking a supplement for her vitamin D deficiency and got some improvement but has not resolved. She stopped taking the Vitamin D. She stays up at night until she is so exhausted that she will fall asleep. When she gets up in the morning she if still tired. - Parasomnia Symptoms Ever been unable to move upon waking from sleep: No Walks in sleep: No Talks in sleep: No Ever acted out dreams in sleep: No Ever felt weak in the knees when startled or emotional: Yes Bothered by creepy, crawly, restless sensations in legs: Yes Problems with memory or concentration: Yes (both) Subjective Initial [place] Sleepiness Scale score: 11 (in 2020) Past Medical History Past Medical History: reports: Hypertension, Arrythmia, Anxiety, GERD. 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 Patient is and lives in [place]. Have you smoked in the past 12 months: No Alcohol use: No Caffeine use: Yes Caffeine amount and frequency: 1-2 x week Family History Family history of sleep disordered breathing: No Allergies and Home Medications Drug allergies reviewed: Yes (aspirin) Home medication list reviewed: Yes Allergy and home medication list: Metoprolol Claratin Amlodipine Resuvostatin Mucinex Review of Systems Weight gain over past 5 years: 10 Cardiovascular: reports: high blood pressure, palpitations, irregular heart rate or pulse Gastrointestinal: reports: heartburn Psychiatric: reports: anxiety Ear/Nose/Throat: reports: nasal congestion, sinus problems, dry mouth/throat, wisdom teeth removed. denies: tonsillectomy Physical Exam Blood Pressure: 132/82 Cuff size: wrist Heart Rate: 63 O2 Saturation: 99 Height: 5 ft 3 in Weight: 147 lb Body Mass Index: 26.0 BMI Classification: Overweight Neck circumference: 13.6 (inches) Nostrils: patent to airflow Turbinates: swollen Mouth and throat: narrow oropharynx Soft palate: long Hard palate: arched Uvula visualization: 50% Mallampati Class II Tongue: enlarged in size with teeth chaudhry on lateral edges Tonsils: 2+ Chin and jaw: normal size and position Neck: normal w/o lymphadenopathy or thyromegaly Heart: regular rate and rhythm Lungs: clear bilaterally Impression and Plan 1. Suspected Obstructive Sleep Apnea-Hypopnea Syndrome, as suggested by a history of irregular snoring, frequent awakening during the night, unrefreshed sleep, cognitive impairment, and excessive daytime sleepiness. I reviewed with the patient that a narrow oropharynx and obesity are common predisposing factors for obstructive sleep apnea-hypopnea syndrome. I recommend proceeding to polysomnography to confirm the diagnosis and to assess severity. If the patient has significant sleep disordered breathing, a manual CPAP titration study will also be performed to find the optimal treatment pressure. I informed the patient of what the sleep studies involve and after some discussion, obtained agreement to proceed. The pathophysiology of obstructive sleep apnea-hypopnea syndrome was discussed with the patient and health risks of cardiovascular and cerebrovascular disease if not treated. AAS brochure for obstructive sleep apnea-hypopnea syndrome given and reviewed. Risks of drowsy driving discussed in detail and patient advised to avoid long distance driving and to pick pulling machine tender at the first sign of drowsiness. Patient agreed to plan. * Schedule polysomnography +- manual CPAP titration study and return in 1-2 weeks after the study to discuss result and initiate therapy. * Avoid long distance driving or driving when feeling sleepy. * Avoid sedative and muscle relaxant around bedtime. * Attempt to lose weight. * Review instructions provided by trained office staff on how to prepare for the sleep study. * Return for follow-up after sleep study completed. Counseling Topics: Weight loss health impact Visit Type: In Office Time Spent with Patient (minutes): 33 Provider Statement: I spent 100% of the Face to Face Visit with the patient with greater than 50% spent counseling the patient and coordination of care.
== END 2020-10-12 15:32 | disposition home or self-care (01) ==
LOC: SC 15:31
PROVIDERS: ATTEND Nurse Practitioner Family
DX: R06.83 Snoring (principal); G47.8 Other sleep disorders; G47.10 Hypersomnia, unspecified; R53.83 Other fatigue; R41.89 Other symptoms and signs involving cognitive functions and awareness; E66.3 Overweight; Z68.26 Body mass index [BMI] 26.0-26.9, adult
CPT/HCPCS: 99203; 99212

== ENCOUNTER 2020-11-07 11:52 | Outpatient (CLI) | payer OTHER | END 2020-11-07 11:53 | disposition home or self-care (01) | LOC: SC 11:52 | PROVIDERS: ATTEND Nurse Practitioner Family | DX: R06.83 Snoring (principal); G47.8 Other sleep disorders; R53.83 Other fatigue; I49.9 Cardiac arrhythmia, unspecified | CPT/HCPCS: 95806 ==

== ENCOUNTER 2020-11-10 16:15 | Outpatient (CLI) | payer OTHER ==
--- NOTE | 2020-11-10 16:45 | SLEEP CARE CONSULTATION ---
Information from patient questionnaire entered by Justin Shaw. I have reviewed and concur with the information entered by Justin Shaw. This document represents the service I personally performed and the decisions made by , Maria Teresa Anthony ARNP. History of Present Illness Service Date and Time: 11/10/2020 1615 Initial [place] Sleepiness Scale score: 11 (in 2020) Current [place] Sleepiness Scale score: 11 Additional HPI information: ALEXANDRA JUAREZ returns for follow up and results of the recently performed home sleep study. The patient was informed of the following findings: no significant sleep disordered breathing with an average AHI of 1.2 and greyson oxygen saturation of 92%. I explained the pathophysiology behind obstructive sleep apnea. Patient does not have sleep apnea and was advised how weight gain could increase the risk of developing sleep apnea in the future. I strongly encouraged the patient to lose weight. Patient has light snoring. Snoring can be reduced by weight loss. Weight loss is best achieved with diet consult. Patient instructed to contact PCP for referral. Snoring can also be treated with an oral appliance from a dentist. Advised to check insurance coverage. In addition, an ENT evaluation can be do to see if other treatment is indicated. Patient counseled not drink alcohol less than 4 hours before bedtime as it can increase snoring and apnea. Patient was cautioned about risks of drowsy driving until sleepiness symptoms resolve. Sleep Study - Results Type of Sleep Study: Home sleep study Prior sleep studies: No Polysomnography/Home Sleep Study results: Physician Impression: The quality of the study is good. The length of the study is adequate (> 240 minutes). Please also see the tabulated and graphic data. 1. No significant sleep disordered breathing, with an AHI of 1.2/hr and greyson SaO2 of 92%. During the study, the patient had 2 apneas (2 obstructive, 0 central, 0 mixed) and 5 hypopneas. The longest episode lasted 57.5 seconds. The few respiratory events occurred more frequently during supine sleep (supine AHI was 2.8 and non-supine, 0.67). Allergies and Home Medications Drug allergies reviewed: Yes (aspirin) Home medication list reviewed: Yes (Celebrex) Review of Systems Review of systems same as previous: No (costochondritis flareup) Physical Exam Heart Rate: 83 O2 Saturation: 98 Height: 5 ft 3 in Weight: 150 lb Body Mass Index: 26.5 BMI Classification: Overweight Impression and Plan Snoring but no significant sleep disordered breathing. Patient advised that often weight loss will reduce snoring as well as apnea risk. An oral appliance can also be used for snoring. This would require a dental consultation. Patient cautioned not to use other online appliances as can cause bite issues. Patient is advised to check if insurance will cover. An ENT consult can also be helpful to determine if any other treatment is an option. * Attempt to lose weight * Avoid alcohol consumption near bedtime * The patient is cautioned about driving until sleepiness is completely resolved. * Return as needed. Counseling Topics: Weight loss health impact Visit Type: In Office Time Spent with Patient (minutes): 20 Provider Statement: I spent 100% of the Face to Face Visit with the patient with greater than 50% spent counseling the patient and coordination of care.
== END 2020-11-10 16:16 | disposition home or self-care (01) ==
LOC: SC 16:15
PROVIDERS: ATTEND Nurse Practitioner Family
DX: R06.83 Snoring (principal); E66.3 Overweight; Z68.26 Body mass index [BMI] 26.0-26.9, adult
CPT/HCPCS: 99212; 99213